=== PATIENT | female | born 1965 | race Two or more races ===

== ENCOUNTER 2016-03-17 17:24 | Emergency (ER) | payer MEDICAID, OTHER ==
[~2016-03-17] VITALS: Ht 157.5 cm; Wt 99.8 kg
[~2016-03-17 17:24] MED LIST: GLYB5TAB66; LISI-275; METF-312
[2016-03-17 17:46] VITALS: BP 169/64
== END 2016-03-17 22:30 | disposition left against medical advice (07) ==
LOC: ER 17:29
DX: R21 Rash and other nonspecific skin eruption (principal); Z53.21 Procedure and treatment not carried out due to patient leaving prior to being seen by health care provider